=== PATIENT | male | born 1960 | race Caucasian/White ===

== ENCOUNTER 2017-01-04 16:38 | Emergency (ER) | payer SELFPAY ==
[~2017-01-04] VITALS: Ht 172.7 cm; Wt 86.2 kg
[~2017-01-04 16:38] MED LIST: ASPIRIN EC325 MG PO; LEDIPASVIR; METFORMIN500 MG PO; PERCOCET 325 MG1 TA2 PO; SOFOSBUVIR; VICODIN5-300 PO; ZOFRAN4 M1 SL
--- NOTE | 2017-01-04 17:45 | RADIOLOGY REPORT ---
EXAMINATION: XR RIBS, LEFT CLINICAL INFORMATION: Fall COMPARISON: 11/17/2014 TECHNIQUE: Expiratory view of the chest. 3 views, 4 additional images of the left ribs. FINDINGS: Lungs are clear. No consolidation, pneumothorax, or pleural effusion. The cardiomediastinal silhouette and pulmonary vasculature are normal. Osseous structures are unremarkable. Ribs are intact. No fractures are identified. IMPRESSION: Clear lungs. No displaced rib fractures.
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
[2017-01-04] MEDS ORDERED: CYCLOBENZAPRINE5 M2 PO (18:23)
[2017-01-04 18:28] VITALS: BP 132/72
== END 2017-01-04 18:30 ==
LOC: ERH 16:38
DX: S20.212A Contusion of left front wall of thorax, initial encounter (principal); R07.89 Other chest pain; W18.09XA Striking against other object with subsequent fall, initial encounter; Y92.9 Unspecified place or not applicable; Y93.9 Activity, unspecified
CPT/HCPCS: 71100-LT